=== PATIENT | female | born 1985 | race Native Hawaiian/Other Pacific Islander ===

== ENCOUNTER 2020-07-27 02:08 | Emergency (ER) | payer SELFPAY ==
[~2020-07-27] VITALS: Ht 165.1 cm; Wt 93.4 kg
[2020-07-27 02:21] VITALS: BP 144/93; Ht 165.1 cm; Wt 93.4 kg
[2020-07-27 03:19] LABS: UA SPECIFIC GRAVITY 1.025 (1.005-1.035); microscopic required? YES; urine erythrocyte 3+ (NEGATIVE)
[2020-07-27 03:21] LABS: BASOPHIL % 0.8 % (0-2); PLATELET COUNT 221 x10^3mcL (130-400); RED CELL DISTRIBUTION WIDTH 13.8 % (11.5-14.5)
== END 2020-07-27 05:15 | disposition home or self-care (01) ==
LOC: ED 02:08
PROVIDERS: Emergency Medicine
DX: O20.8 Other hemorrhage in early pregnancy (principal); Z3A.20 20 weeks gestation of pregnancy
CPT/HCPCS: Q0092